=== PATIENT | male | born 1950 | race Caucasian/White ===

== ENCOUNTER → 2017-03-19 | Outpatient (CLI) | payer OTHER ==
[~2017-03-19] MED LIST: CYCL1TAB29 PO; GABA100C4 PO; HYDR-3366 PO; LEVO500T8 PO; SIMVPOW; TAMS5CAP PO; WALKER WHEELS/F1 MIS; ZOCO40TA PO
== END ==
LOC: CPRE 12:47
PROVIDERS: ATTEND Neurological Surgery
DX: M48.06 Spinal stenosis, lumbar region (principal); M51.36 Other intervertebral disc degeneration, lumbar region

== ENCOUNTER 2017-03-27 05:52 | Inpatient (IN) | payer OTHER, MEDICARE ==
--- NOTE | 2017-03-26 14:00 | MH ---
cc: CARLOS TSANG M.D., PRADY M. MD MALIK, VINOD K. MD DATE OF ADMISSION: 03/27/2017 ADMISSION DIAGNOSIS Lumbar degenerative disk disease. HISTORY OF PRESENT ILLNESS This is a 67-year-old male who presented to our office for evaluation of left hip area pain that radiates into the left lateral thigh and anterior dobbins to the top of the foot for the last year. He states he has been to physical therapy which exacerbated his pain. He states the pain and weakness is worse in the left leg. He has tried physical therapy 4 or 5 weeks. He has numbness and paresthesias in the same area as the pain. He denies any falls but his legs feel weak. Sitting is the worst position and bending forward. He has had hernia surgery on the right side which became infected on two occasions and he was discovered to be ALLERGIC TO VICRYL SUTURES. PAST MEDICAL HISTORY Significant for: 1. Knee surgery in 2002. 2. Hernia surgery in May of 2016. 3. Cervical spine surgery in 1990, 1992, 2010. 4. History of COPD. 5. History of hyperlipidemia. CURRENT MEDICATIONS He is taking Simvastatin 40 mg daily, Gabapentin 100 mg b.i.d. ALLERGIES He is allergic to VICRYL SUTURES. FAMILY HISTORY Father is , he is not sure of the cause. His mother is , bowel obstruction. SOCIAL HISTORY He is . He does not have children. He lives with his . He smokes a pack of cigarettes a day for 50 years. He drinks alcohol two drinks or more daily. REVIEW OF SYSTEMS CONSTITUTIONAL: Denies any fever or chills. ENT: No pharyngitis, exudates or bloody drainage from his nose. CARDIOVASCULAR: Denies any chest pain or palpitations. RESPIRATORY: Positive for shortness of breath. No cough. GENITOURINARY: No dysuria hematuria. MUSCULOSKELETAL: Positive for low back pain. SKIN: No rashes or pruritus. NEUROLOGIC: No difficulty with speech or memory. GASTROINTESTINAL: No nausea, vomiting, abdominal pain. PSYCHIATRIC: Positive for depression. No anxiety symptoms. ENDOCRINE: No polyuria, polydipsia. HEMATOLOGIC: No bruising or bleeding tendencies. PHYSICAL EXAMINATION HEAD: Normocephalic, atraumatic. NECK: Supple. No carotid bruits heard on auscultation. LUNGS: Clear to auscultation bilaterally. HEART: Regular rate and rhythm, normal S1, S2. ABDOMEN: Soft, nontender. Positive bowel sounds. He has a right inguinal scar that is healed without any drainage or erythema. SKIN: No cyanosis or erythema. MUSCULOSKELETAL: He has 3/5 EHL/dorsiflexion strength. Otherwise his strength is 5/5 in the lower extremities. NEUROLOGIC: He is awake, alert and oriented. Cranial nerves II-XII appear grossly intact. His speech is fluent. Comprehension is good. Sensation is diminished in the left lateral calf and top and bottom of the left foot, otherwise intact. DATA REVIEWED MRI of the lumbar spine from March 07, 2016 reveals a L4-L5 disk degeneration with disk height collapse and endplate changes along with disk protrusion and facet hypertrophy with overall moderate to severe spinal stenosis. He also has severe L5-S1 degenerative disk disease with disk height collapse with bilateral foraminal stenosis. IMPRESSION A 67-year-old male with progressively worsening low back pain and left L5 radiculopathy with weakness. Physical therapy aggravate his symptoms rather than helped him and he relates that sitting or driving is very difficult for him and aggravates his pain. The patient is requesting surgical intervention. He has severe disk degeneration with disk height collapse and endplate changes at L4-L5 and L5-S1 along with facet arthropathy and disk protrusion with spinal stenosis at the L4-5 level and foraminal stenosis at the L5-S1 level. PLAN We have discussed treatment options with the patient and we have recommended a L4/L5 and L5/S1 transforaminal decompression with interbody fusion and pedicle screw fixation, given that the patient cannot tolerate his current level discomfort and he has exhausted conservative treatment measures. No guarantees were given to the patient. We have discussed the risks involved with surgery to include but not limited to bleeding, infection, muscle weakness, voice hoarseness, difficulty swallowing, heart attack, stroke, blood clots, non-fusion, scar tissue formation, among others. We have also discussed alternatives of surgery and the risks and benefits involved with those. All of his questions were answered to his satisfaction. He is requesting that we proceed and he was therefore scheduled accordingly. Dictated by: Edi Blunt PA-C MD LILIA Ramos/ELOISE /1:28 PM /1:39 PM
[~2017-03-27] VITALS: Ht 182.9 cm; Wt 79.6 kg
[~2017-03-27 05:52] MED LIST changes: -LEVO500T8 PO; -SIMVPOW; -TAMS5CAP PO; -WALKER WHEELS/F1 MIS
[2017-03-27] MEDS ORDERED: INSULIN HUMAN REGULAR 1,000 UNITS/10 ML VIAL SQ PRN (06:30)
[2017-03-27] MEDS ORDERED: LACTATED RINGER'S 1000 ML IV PRN (06:30)
[2017-03-27] MEDS ORDERED: CHLORHEXIDINE GLUCONATE 2 % 1 PACK (2 CLOTHS) TOPICAL PRN (06:30)
[2017-03-27] MEDS ORDERED: VANCOMYCIN HCL 1000 MG ON-CALL/NS 250 ML IV SCH ×2 (06:30)
[2017-03-27] MEDS ORDERED: SODIUM CHLOR 0.9% 1000 ML INJ 1,000 ML IV SCH (06:30)
[2017-03-27] MEDS ORDERED: SODIUM CHLORID 0.9% 500 ML IV PRN (06:30)
[2017-03-27] MEDS ORDERED: METOPROLOL TARTRATE 25 MG TAB PO PRN (06:30)
[2017-03-27] MEDS ORDERED: POVIDONE IODINE 5% (ANTISEPSIS KIT) 4 APPLICATIONS EACH NARE PRN (06:30)
[2017-03-27] MEDS ORDERED: PROPOFOL 500 MG/50 ML INJ 50 ML ONE (06:48)
[2017-03-27] MEDS ORDERED: ACETAMINOPHEN 1000 MG/100 ML 100 ML IV ONE (06:48)
[2017-03-27] MEDS ORDERED: KETAMINE HCL 500 MG/5 ML VIAL ONE (06:48)
[2017-03-27] MEDS ORDERED: THROMBIN (TOPICAL) 5,000 UNIT VIAL ONE ×3 (07:01→13:30)
[2017-03-27] MEDS ORDERED: VANCOMYCIN HCL 1000 MG VIAL ONE ×2 (07:01)
[2017-03-27] MEDS ORDERED: GELFOAM SIZE 100 ONE ×2 (07:01→13:30)
[2017-03-27] MEDS ORDERED: BUPIVACAINE/EPINEPHRINE 0.5% 50 ML VIAL ONE (07:01)
[2017-03-27] MEDS ORDERED: HYDROmorphone HCL PF 2 MG/ML VIAL ONE (08:15)
[2017-03-27] MEDS ORDERED: ePHEDrine/NS 25 MG/5 ML SYR IV ONE ×2 (12:00)
[2017-03-27] MEDS ORDERED: SODIUM CHLORID 0.9% 500 ML INJ 500 ML IV ONE (12:00)
[2017-03-27] MEDS ORDERED: LACTATED RINGER'S 1000 ML INJ 2,000 ML IV ONE (12:00)
[2017-03-27] MEDS ORDERED: DEXAMETHASONE SOD PHOS 4 MG/ML VIAL IV ONE (12:00)
[2017-03-27] MEDS ORDERED: PROPOFOL 200 MG/20 ML AMP IV ONE (12:00)
[2017-03-27] MEDS ORDERED: PHENYLEPHRINE HCL 10 MG/ML VIAL IV ONE (12:00)
[2017-03-27] MEDS ORDERED: PHENYLEPH/NS 1000 MCG/10 ML SYR IV ONE (12:00)
[2017-03-27] MEDS ORDERED: NEOSTIGMINE 3 MG/3 ML SYR IV ONE (12:00)
[2017-03-27] MEDS ORDERED: ROCURONIUM INJ 50 MG/5 ML SYRINGE IV PUSH ONE ×2 (12:00→12:17)
[2017-03-27] MEDS ORDERED: LIDOCAINE HCL 1% PF 5 ML AMPULE OTHER ONE (12:00)
[2017-03-27] MEDS ORDERED: GLYCOPYRROLATE 1 MG/5 ML SYRINGE IV PUSH ONE (12:00)
[2017-03-27] MEDS ORDERED: MIDAZOLAM HCL 2 MG/2 ML VIAL IV ONE (12:00)
[2017-03-27] MEDS ORDERED: ONDANSETRON HCL 4 MG/2 ML VIAL IV PUSH ONE (12:00)
[2017-03-27] MEDS ORDERED: DO NOT ADM ANY ANTICOAGULANT DRUGS PRN (14:05)
--- NOTE | 2017-03-27 14:22 | PD.OP ---
MD Anderson Hdez MD Operative Report Date of Surgery: Mar 27, 2017 Preoperative Diagnosis: Severe L4-5 and L5-S1 degenerative disc disease with facet arthropathy and foraminal stenosis; L4-5 disc protrusion with spinal and foraminal stenosis; intractable low back pain with radiculopathy Postoperative Diagnosis: Same Procedure: L4-5 and L5-S1 transforaminal interbody fusion; L4, L5 and S1 decompressive laminectomies; L4-S1 pedicle screw fixation; L4-5 and L5-S1 interbody cage placement; microsurgical technique Anesthesia: Gen. endotracheal by Khadar Clarke Surgeon: Arvind Spaulding M.D. Particle Board Supervisor(s): Tiffani Schuler Operation and Findings: Following initiation of general endotracheal anesthesia, the patient had a Kaufman catheter placed along with sequential compression devices. A gram of vancomycin was administered intravenously and he was turned in a prone position on a Eduardo frame, on a Clifford table, and all pressure points adequately padded. The lumbosacral region was then prepped with Chloraprep and sterilely draped with Ioban along the usual sterile draping. A midline skin incision was then made extending from the L4-S1 levels after infiltrating the skin with 0.5% Marcaine with epinephrine solution extending down through the fascia. Using the subperiosteal plane the muscle attachments a left-sided spinous process lamina facet that were detached at the L4-5 and L5-S1 levels. There is significant facet hypertrophy noted. Intraoperative fluoroscopy was also used for level of confirmation along with microscope magnification for further dissection. L4-5 facet and L5-S1 facet was resected with a drill bit along with the lamina and there was severe foraminal and lateral recess stenosis from hypertrophied ligamentum flavum and facet which were decompressed bilaterally through the unilateral approach. There was significant disc height collapse along with disc protrusion also leading to the foraminal stenosis at both levels. There was also central disc protrusion at the L4-5 level. Epidural hemostasis was achieved with bipolar cautery and Gelfoam with thrombin. Subsequently entered into the disc space at the L4-5 as well as L5-S1 levels with a #15 blade and dayo were used for discectomy. I then placed PEEK cages packed with local autograft bone and more local autograft bone was packed adjacent to the cage in both interspaces for added interbody fusion. With placement of the cages, I was able to distract the interspaces and opened up the foramen further bilaterally. Subsequently in order to facilitate the fusion and provide stabilization, pedicle screw fixation was undertaken using Callaway spine screws on entry point at the left L4-5 levels at the junction of the transverse process and facet and the left S1 sacral ala. Subsequently using AP and lateral fluoroscopy tap and screw placement. The screws were then connected with a jesusita and locked in place with caps. The construct appeared very secure at this point. The area was then copiously irrigated with Vancomycin solution and powder. The retractors were removed and the bipolar cautery used for hemostasis. The muscle fascia was then approximated using 1-0 PDS interrupted stitches and then 3-0 PDS subcuticular stitches also placed in interrupted fashion. The final skin closure was completed with Mastisol and Steri-Strips. A sterile dressing was then applied. The patient then turned in supine position, extubated and taken to recovery room. There were no intraoperative complications. All sponge and needle counts were correct at the end of procedure. Estimated blood loss about 250 ml. Arvind Spaulding MD Mar 27, 2017 14:22
[2017-03-27] MEDS ORDERED: RESP: ALBUTEROL 2.5 MG/3 ML NEB (PRN) NEB (14:30)
[2017-03-27] MEDS ORDERED: NALOXONE HCL 0.4 MG/ML AMP IV PUSH PRN (14:30)
[2017-03-27] MEDS ORDERED: ACETAMINOPHEN 325 MG TAB PO PRN (14:30)
[2017-03-27] MEDS ORDERED: CALCIUM GLUCONATE INJ 1 GM in SODIUM CHLORIDE 0.9% INJ 100 ML IV PRN (14:30)
[2017-03-27] MEDS ORDERED: PROMETHAZINE INJ 25 MG/ML VIAL IM PRN (14:30)
[2017-03-27] MEDS ORDERED: diphenhydrAMINE HCL 50 MG/ML VIAL IV PUSH PRN (14:30)
[2017-03-27] MEDS ORDERED: MAGNESIUM SULFATE INJ 2 GM in SODIUM CHLORIDE 0.9% INJ 100 ML IV PRN (14:30)
[2017-03-27] MEDS ORDERED: ONDANSETRON HCL 4 MG/2 ML VIAL IV PUSH PRN (14:30)
[2017-03-27] MEDS ORDERED: cloNIDine HCL 0.1 MG TAB PO PRN (14:30)
[2017-03-27] MEDS ORDERED: SODIUM CHLORIDE 0.9% FLUSH 10 ML FLUSH IV FLUSH PRN (14:30)
[2017-03-27] MEDS ORDERED: ALUMINUM/MAGNESIUM/SIMETH 30 ML CUP PO PRN (14:30)
[2017-03-27] MEDS ORDERED: MENTHOL LOZENGE BUCCAL PRN (14:30)
[2017-03-27] MEDS ORDERED: POTASSIUM CHLOR 20 MEQ PREMIX 100 ML IV PRN (14:30)
[2017-03-27] MEDS ORDERED: MAGNESIUM HYDROXIDE SUSP 30 ML CUP PO PRN (14:30)
[2017-03-27] MEDS: PCA - TOTAL MG MORPHINE DELIVERED PER SHIFT SCH ×2 (14:30→22:00)
[2017-03-27] MEDS: NS + KCL 20 MEQ INJ 1,000 ML IV SCH (14:38)
[2017-03-27] MEDS: MORPHINE SULFATE 30 MG/30 ML PCA IV SCH (14:38)
--- NOTE | 2017-03-27 15:37 | RADRPT ---
EXAM DATE/TIME: 03/27/2017 08:55 [facility] COMPARISON: FLUOROSCOPY PORTABLE UP TO 1HR, March 27, 2017, 0:00. INDICATIONS : Post-op L4-L5, L5-S1 posterior lumbar fusion. MEDICAL HISTORY : None. SURGICAL HISTORY : None. ENCOUNTER: Initial ACUITY: 1 day PAIN SCORE: Non-responsive. LOCATION: Lumbar spine. FINDINGS: The examination demonstrates transpedicular screws on the left side at L4, L5 and S1 consistent with fusion across these levels. The cage material is well-positioned. CONCLUSION: 1. Uncomplicated unilateral lumbar fusion as above. Rigoberto Delgadillo MD on March 27, 2017 at 14:20 Board Certified Radiologist. This report was verified electronically.
--- NOTE | 2017-03-27 15:38 | RADRPT ---
EXAM DATE/TIME: 03/27/2017 08:55 [facility] COMPARISON: FLUOROSCOPY PORTABLE UP TO 1HR, March 27, 2017, 0:00. INDICATIONS : L4-L5, L5-S1 posterior lumbar fusion. Level localization. MEDICAL HISTORY : None. SURGICAL HISTORY : None. ENCOUNTER: Initial ACUITY: 1 day PAIN SCORE: Non-responsive. LOCATION: Lumbar spine. FINDINGS: Lateral film for localization demonstrates localization hardware projecting at L4 and L5. CONCLUSION: 1. Localization as above. Rigoberto Delgadillo MD on March 27, 2017 at 15:36 Board Certified Radiologist. This report was verified electronically.
[2017-03-27 16:02] LABS: BASOPHIL % 0.1 % (0.0-2.0); EOSINOPHIL % 0.1 % (0.0-4.0); HEMATOCRIT 40.1 % (39.0-51.0); HEMO FLAGS DIFF FINAL; LYMPH % 5.3 % (9.0-44.0); LYMPHOCYTE # 0.7 TH/MM3 (1.0-4.8); MEAN CELL VOLUME 95.2 FL (80.0-100.0); MEAN CORPUSCULAR HEMOGLOBIN 31.4 PG (27.0-34.0); MONO % 1.4 % (0.0-8.0); NEUT % 93.1 % (16.0-70.0); PLATELET COUNT 171 TH/MM3 (150-450); RED BLOOD COUNT 4.21 MIL/MM3 (4.50-5.90); RED CELL DISTRIBUTION WIDTH 13.9 % (11.6-17.2)
[2017-03-27 16:10] LABS: POTASSIUM 4.1 MEQ/L (3.5-5.1)
[2017-03-27] MEDS: ACETAMINOPHEN/HYDROcodone 325 MG/10 MG TAB PO PRN ×2 (17:03→21:27)
[2017-03-27 17:30] VITALS: BP 121/66; PULSE 76; RESP 18; TEMP 98.2; O2SAT 96
[2017-03-27] MEDS: CYCLOBENZAPRINE HCL 10 MG TAB PO SCH (17:52)
[2017-03-27 19:43] VITALS: O2SAT 96
[2017-03-27 20:30] VITALS: BP 99/58; PULSE 82; RESP 16; TEMP 98.1; O2SAT 96
[2017-03-27] MEDS: SODIUM CHLORIDE 0.9% FLUSH 10 ML FLUSH IV FLUSH SCH (21:00)
[2017-03-27] MEDS: DOCUSATE SODIUM 100 MG CAP PO SCH (21:00)
[2017-03-27] MEDS: ZOLPIDEM TARTRATE 5 MG TAB PO PRN (21:26)
[2017-03-27] MEDS: GABAPENTIN 100 MG CAP PO SCH (21:26)
[2017-03-28] VITALS (8 sets, daily range): BP systolic 99–144; BP diastolic 57–72; PULSE 63–113; RESP 16–20; TEMP 97.1–98.7; O2SAT 94–96
[2017-03-28] MEDS: NS + KCL 20 MEQ INJ 1,000 ML IV SCH ×2 (01:44→14:41)
[2017-03-28] MEDS: SODIUM CHLORIDE 0.9% FLUSH 10 ML FLUSH IV FLUSH SCH ×2 (09:00→21:00)
[2017-03-28] MEDS: LACTULOSE SYRUP 20 GM/30 ML CUP PO SCH (09:00)
[2017-03-28] MEDS: PANTOPRAZOLE SOD 40 MG DELAYED RELEASE TAB PO SCH (09:32)
[2017-03-28] MEDS: GABAPENTIN 100 MG CAP PO SCH ×2 (09:32→21:10)
[2017-03-28] MEDS: CYCLOBENZAPRINE HCL 10 MG TAB PO SCH ×3 (09:32→18:36)
[2017-03-28] MEDS: PRAVASTATIN SOD 80 MG TAB PO SCH (09:32)
[2017-03-28] MEDS: DOCUSATE SODIUM 100 MG CAP PO SCH ×2 (09:32→21:10)
--- NOTE | 2017-03-28 09:33 | HHI.NSPN ---
(Edi Blunt) History Chief Complaint: Incisional discomfort. (Edi Blunt) Interval History 03/28/17: Pt states he is doing very well. Incisional discomfort. No radiculopathy in the LEs. No paresthesias in LEs. He ambulated with PT. He is very pleased with results so far. (Edi Blunt) Review of Systems General: Negative for: fever, chills, insomnia Respiratory: Negative for: shortness of breath, cough, sputum Cardiovascular: Negative for: chest pain Gastrointestinal: Negative for: nausea, vomitting, diarrhea, constipation ( Edi Blunt) Exam Results Vital Signs Date Time Temp Pulse Resp B/P (MAP) Pulse Ox O2 Delivery O2 Flow Rate FiO2 03/28/17 08:03 97.1 63 20 119/72 (88) 96 03/27/17 19:43 21 03/27/17 16:45 Nasal Cannula 2 Intake and Output 03/28/17 03/28/17 03/29/17 08:00 16:00 00:00 Output Total 1400 ml Balance -1400 ml (Edi Blunt) Physical Examination Resp: CTA bilaterally Heart: NSR no murmurs Abd: Soft positive bs Skin: Incision clean and dry. No signs of infection. New bandage placed. Muscle: Moves all 4 extremities well. He ambulates with a walker. Neuro: Pt awake and alert. Follows commands well. Speech clear and appropriate. No numbness in LEs. (Edi Blunt) Lab, Micro, Other Results Last Impressions Lumbar Spine X-Ray 03/27/17 0000 Signed Impressions: Service Date/Time: February 08:55 - CONCLUSION: 1. Uncomplicated unilateral lumbar fusion as above. Rigoberto Delgadillo MD Laboratory Tests Test 03/27/17 14:53 White Blood Count 14.0 TH/MM3 Red Blood Count 4.21 MIL/MM3 Hemoglobin 13.2 GM/DL Hematocrit 40.1 % Mean Corpuscular Volume 95.2 FL Mean Corpuscular Hemoglobin 31.4 PG Mean Corpuscular Hemoglobin Concent 33.0 % Red Cell Distribution Width 13.9 % Platelet Count 171 TH/MM3 Mean Platelet Volume 7.5 FL Neutrophils (%) (Auto) 93.1 % Lymphocytes (%) (Auto) 5.3 % Monocytes (%) (Auto) 1.4 % Eosinophils (%) (Auto) 0.1 % Basophils (%) (Auto) 0.1 % Neutrophils # (Auto) 13.0 TH/MM3 Lymphocytes # (Auto) 0.7 TH/MM3 Monocytes # (Auto) 0.2 TH/MM3 Eosinophils # (Auto) 0.0 TH/MM3 Basophils # (Auto) 0.0 TH/MM3 CBC Comment DIFF FINAL Differential Comment Blood Urea Nitrogen 13 MG/DL Creatinine 0.73 MG/DL Random Glucose 114 MG/DL Calcium Level 8.5 MG/DL Sodium Level 140 MEQ/L Potassium Level 4.1 MEQ/L Chloride Level 110 MEQ/L Carbon Dioxide Level 26.0 MEQ/L Anion Gap 4 MEQ/L Estimat Glomerular Filtration Rate 107 ML/MIN (Edi Blunt) Medical Decision Making Impression and Plan A: 67 y/o M s/p L4/L5 and L5/S1 TLIF with cage and pedicle screw fixation. P: Continue to monitor Continue with current care. D/C CERAMIC WORKER tomorrow am (Edi Blunt) Attending Statement The exam, history, and the medical decision-making described in the above note were completed with the assistance of the mid-level provider. I reviewed and agree with the findings presented. I attest that I had a [id number] encounter with the patient on the same day, and personally performed and documented my assessment and findings in the medical record. Incisional pain control with the CERAMIC WORKER. Resolved lower extremity radicular symptoms. Ambulating and voiding with a slight hematuria after the Kaufman catheter was pulled. We'll DC CERAMIC WORKER tomorrow and if doing well then discharge over the next couple days. (Arvind Spaulding MD) Edi Blunt Mar 28, 2017 09:33 Arvind Spaulding MD Mar 28, 2017 18:28
[2017-03-28] MEDS ORDERED: WALKER WHEELS/F1 MIS (09:35)
[2017-03-28] MEDS: ACETAMINOPHEN/HYDROcodone 325 MG/10 MG TAB PO PRN ×2 (09:44→21:11)
[2017-03-28] MEDS: PCA - TOTAL MG MORPHINE DELIVERED PER SHIFT SCH ×2 (14:00→21:51)
[2017-03-28] MEDS: NICOTINE 21 MG/24 HR PATCH T-DERMAL SCH (15:17)
[2017-03-28] MEDS: ZOLPIDEM TARTRATE 5 MG TAB PO PRN (21:10)
[2017-03-29 04:00] VITALS: BP 121/64; PULSE 92; RESP 18; TEMP 98.1; O2SAT 90
[2017-03-29] MEDS: PCA - TOTAL MG MORPHINE DELIVERED PER SHIFT SCH ×3 (06:00→20:50)
[2017-03-29] MEDS: MORPHINE SULFATE 30 MG/30 ML PCA IV SCH (06:17)
[2017-03-29 08:15] VITALS: BP 104/58; PULSE 86; RESP 18; TEMP 98.2; O2SAT 93
[2017-03-29] MEDS: GABAPENTIN 100 MG CAP PO SCH ×2 (09:22→20:50)
[2017-03-29] MEDS: LACTULOSE SYRUP 20 GM/30 ML CUP PO SCH (09:22)
[2017-03-29] MEDS: DOCUSATE SODIUM 100 MG CAP PO SCH ×2 (09:22→20:50)
[2017-03-29] MEDS: REMOVE OLD PATCH T-DERMAL SCH (09:23)
[2017-03-29] MEDS: CYCLOBENZAPRINE HCL 10 MG TAB PO SCH ×3 (09:23→16:53)
[2017-03-29] MEDS: PRAVASTATIN SOD 80 MG TAB PO SCH (09:23)
[2017-03-29] MEDS: PANTOPRAZOLE SOD 40 MG DELAYED RELEASE TAB PO SCH (09:23)
[2017-03-29] MEDS: NICOTINE 21 MG/24 HR PATCH T-DERMAL SCH (09:23)
[2017-03-29] MEDS: SODIUM CHLORIDE 0.9% FLUSH 10 ML FLUSH IV FLUSH SCH ×2 (09:24→20:50)
[2017-03-29] MEDS: ACETAMINOPHEN/HYDROcodone 325 MG/10 MG TAB PO PRN ×3 (10:18→20:50)
[2017-03-29 11:57] VITALS: O2SAT 93
[2017-03-29 12:00] VITALS: BP 111/68; PULSE 95; RESP 20; TEMP 100; O2SAT 94
--- NOTE | 2017-03-29 12:57 | PD.CONS ---
HPI Service Urology Consult Requested By Dr. Christian Reason for Consult Gross hematuria Primary Care Physician Chilo Herzog MD Diagnosis: History of Present Illness 67 year-old gentleman who was admitted with left hip pain and underwent low back surgery on March 27 of this year. The patient did have an indwelling Kaufman catheter placed during the perioperative period and upon removal the patient developed gross painless hematuria. A urology consult was placed to address this finding. At the time of consultation the patient reported that the hematuria had resolved. He was complaining however of voiding frequently with only small amounts of urine being produced. He denies having problems with urination in the past. He denies a history of BPH. Review of Systems Constitutional: COMPLAINS OF: Fever (low-grade) Cardiovascular: DENIES: Chest pain Gastrointestinal: DENIES: Abdominal pain Genitourinary: COMPLAINS OF: Urinary frequency, Hematuria (now resolved) Except as stated in HPI: all other systems reviewed are Neg Past Family Social History Past Medical History COPD Hyperlipidemia Past Surgical History Recent low back surgery Status post knee surgery 2002 Status post herniorrhaphy 2016 Status post multiple surgical procedures to the cervical spine Reported Medications Refer to EMR Allergies: Uncoded Allergies: vicryl sutures (Allergy, Severe, 03/05/17) Active Ordered Medications Refer to EMR Family History Reviewed and noncontributory Social History Smoker one pack per day 50 years Moderate alcohol use Denies history intravenous drug abuse Physical Exam Vital Signs Date Time Temp Pulse Resp B/P (MAP) Pulse Ox O2 Delivery O2 Flow Rate FiO2 03/29/17 12:00 100.0 95 20 111/68 (82) 94 03/29/17 08:15 98.2 86 18 104/58 (73) 93 03/29/17 06:17 20 03/29/17 04:00 98.1 92 18 121/64 (83) 90 03/28/17 21:51 18 03/28/17 20:00 97.3 113 20 144/72 (96) 94 03/28/17 16:10 98.0 91 20 121/65 (83) 96 03/28/17 14:00 14 Physical Exam GENERAL: This is a well-nourished, well-developed patient, in no apparent distress. SKIN: No rashes, ecchymoses or lesions. Cool and dry. HEAD: Atraumatic. Normocephalic. No temporal or scalp tenderness. EYES: Pupils equal round and reactive. Extraocular motions intact. No scleral icterus. No injection or drainage. ENT: Nose without bleeding, purulent drainage or septal hematoma. Throat without erythema, tonsillar hypertrophy or exudate. Uvula midline. Airway patent. NECK: Trachea midline. No JVD or lymphadenopathy. Supple, nontender, no meningeal signs. GASTROINTESTINAL: Upper Abdomen soft, non-tender, nondistended. No hepato- splenomegaly, or palpable masses. No guarding. GENITOURINARY: Bladder distended. MUSCULOSKELETAL: Extremities without clubbing, cyanosis, or edema. No joint tenderness, effusion, or edema noted. No calf tenderness. Negative Homans sign bilaterally. NEUROLOGICAL: Awake and alert. Cranial nerves II through XII intact. Motor and sensory grossly within normal limits. Normal speech. Lab results reviewed: Yes Result Diagram: 03/27/17 1453 03/27/17 1453 Imaging Last Impressions Lumbar Spine X-Ray 03/27/17 0000 Signed Impressions: Service Date/Time: February 08:55 - CONCLUSION: 1. Uncomplicated unilateral lumbar fusion as above. Rigoberto Delgadillo MD Assessment and Plan Assessment and Plan Urologic impression: #1 recent development of gross hematuria likely related to trauma from recent Kaufman catheter which is now resolved. #2 postoperative urinary retention Recommendations: #1 discussed replacing Kaufman catheter at this time however patient is presently refusing this option as he is able to spontaneously void albeit small amounts at a time. #2 outpatient follow up for reevaluation [phone] Benitez Lopez MD Mar 29, 2017 12:57
--- NOTE | 2017-03-29 13:50 | HHI.NSPN ---
History Chief Complaint: Incisional discomfort. Interval History 03/28/17: Pt states he is doing very well. Incisional discomfort. No radiculopathy in the LEs. No paresthesias in LEs. He ambulated with PT. He is very pleased with results so far. 03/29/17: Pt doing well. No complaints of pain. Exam Results Vital Signs Date Time Temp Pulse Resp B/P (MAP) Pulse Ox O2 Delivery O2 Flow Rate FiO2 03/29/17 12:00 100.0 95 20 111/68 (82) 94 03/27/17 19:43 21 03/27/17 16:45 Nasal Cannula 2 Physical Examination Resp: CTA bilaterally Heart: NSR no murmurs Abd: Soft positive bs Skin: Incision clean and dry. No signs of infection. New bandage placed. Muscle: Moves all 4 extremities well. He ambulates with a walker. Neuro: Pt awake and alert. Follows commands well. Speech clear and appropriate. No numbness in LEs. Lab, Micro, Other Results Last Impressions Lumbar Spine X-Ray 03/27/17 0000 Signed Impressions: Service Date/Time: February 08:55 - CONCLUSION: 1. Uncomplicated unilateral lumbar fusion as above. Rigoberto Delgadillo MD Current Medications Medications (Trade) Dose Ordered Sig/Tori Route PRN Reason Start Time Stop Time Status Last Admin Dose Admin Lactated Ringer's 1,000 ml @ 30 mls/hr Q24H PRN IV SEE LABEL COMMENTS 03/27/17 06:30 03/30/17 06:29 03/27/17 07:05 Sodium Chloride 500 ml @ 30 mls/hr [id number] PRN IV SEE LABEL COMMENTS 03/27/17 06:30 03/30/17 06:29 Metoprolol Tartrate (Lopressor) 25 mg [employer] PRN PO SEE LABEL COMMENTS 03/27/17 06:30 03/30/17 06:29 Povidone Iodine (Betadine 5% Antisepsis Kit) 1 applic [employer] PRN EACH NARE SEE LABEL COMMENTS 03/27/17 06:30 03/30/17 06:29 03/27/17 07:05 Chlorhexidine Gluconate (Chlorhexidine 2% Cloth) 3 pack [employer] PRN TOPICAL SEE LABEL COMMENTS 03/27/17 06:30 03/30/17 06:29 03/27/17 06:45 Insulin Human Regular (NovoLIN R INJ) See Protocol Table ... [employer] PRN SQ SEE PROTOCOL TABLE 03/27/17 06:30 03/30/17 06:29 Vancomycin HCl 1000 mg/Sodium Chloride 250 ml @ 250 mls/hr [employer] IV 03/27/17 06:30 03/30/17 06:29 03/27/17 07:19 Cyclobenzaprine HCl (Flexeril) 10 mg TID PO 03/27/17 18:00 03/29/17 12:45 Gabapentin (Neurontin) 100 mg BID PO 03/27/17 21:00 03/29/17 09:22 Pravastatin Sodium (Pravachol) 80 mg DAILY PO 03/28/17 09:00 03/29/17 09:23 Potassium Chloride/Sodium Chloride 1,000 ml @ 30 mls/hr Q24H IV 03/27/17 14:18 03/28/17 14:41 Sodium Chloride (NS Flush) 2 ml UNSCH PRN IV FLUSH FLUSH AFTER USING IV ACCESS 03/27/17 14:30 Sodium Chloride (NS Flush) 2 ml BID IV FLUSH 03/27/17 21:00 03/29/17 09:24 Docusate Sodium (Colace) 100 mg BID PO 03/27/17 21:00 03/29/17 09:22 Magnesium Hydroxide (Milk Of Magnesia Liq) 30 ml DAILY PRN PO CONSTIPATION 03/27/17 14:30 Al Hydrox/Mg Hydrox/Simethicone (Mag-Al Plus Susp Liq) 30 ml Q6H PRN PO DYSPEPSIA 03/27/17 14:30 Pantoprazole Sodium (Protonix) 40 mg DAILY PO 03/28/17 09:00 03/29/17 09:23 Ondansetron HCl (Zofran Inj) 4 mg Q6H PRN IV PUSH NAUSEA OR VOMITING 03/27/17 14:30 Promethazine HCl (Phenergan Inj) 25 mg Q4H PRN IM NAUSEA OR VOMITING 03/27/17 14:30 Calcium Gluconate 1 gm/Sodium Chloride 110 ml @ 110 mls/hr UNSCH PRN IV SEE LABEL COMMENTS 03/27/17 14:30 Potassium Chloride 100 ml @ 50 mls/hr UNSCH PRN IV POTASSIUM LESS THAN 4 03/27/17 14:30 Magnesium Sulfate 2 gm/Sodium Chloride 104 ml @ 100 mls/hr UNSCH PRN IV MAGNESIUM LESS THAN 2 03/27/17 14:30 Acetaminophen/ Hydrocodone Bitart (Points 10-325 Mg) 1 tab Q4H PRN PO PAIN SCALE 1 TO 5 03/27/17 14:30 03/28/17 09:44 Acetaminophen/ Hydrocodone Bitart (Points 10-325 Mg) 2 tab Q4H PRN PO PAIN SCALE 6 TO 10 03/27/17 14:30 03/29/17 10:18 Clonidine (Catapres) 0.1 mg Q6H PRN PO SYS BP GREATER THAN 170 MMHG 03/27/17 14:30 Acetaminophen (Tylenol) 650 mg Q4H PRN PO TEMPERATURE > 101.5 F 03/27/17 14:30 Menthol ([place]) 1 lozenge UNSCH PRN BUCCAL SORE THROAT 03/27/17 14:30 Zolpidem Tartrate (Ambien) 5 mg HS PRN PO INSOMNIA 03/27/17 21:00 03/28/17 21:10 Albuterol Sulfate (Albuterol Neb) 2.5 mg Q4HR NEB PRN NEB WHEEZING 03/27/17 14:30 03/29/17 01:47 Naloxone HCl (Narcan Inj) 0.4 mg UNSCH PRN IV PUSH RESPIRATORY RATE LESS THAN 10 03/27/17 14:30 Diphenhydramine HCl (Benadryl Inj) 25 mg Q6H PRN IV PUSH ITCHING 03/27/17 14:30 Morphine Sulfate (Morphine 1 Mg/ ml PASTRY SUPERVISOR) 30 mg UNSCH IV 03/27/17 14:30 03/29/17 06:17 PASTRY SUPERVISOR Dosage Infused (Pha) 1 Q8HR .XX 03/27/17 14:30 03/28/17 21:51 Lactulose (Lactulose Liq) 30 ml DAILY PO 03/28/17 09:00 03/29/17 09:22 Nicotine (Habitrol 21 Mg Patch.24 Hr) 1 patch DAILY T-DERMAL 03/28/17 09:45 03/29/17 09:23 Miscellaneous Information 1 DAILY T-DERMAL 03/29/17 09:00 03/29/17 09:23 Laboratory Tests Test 03/27/17 14:53 White Blood Count 14.0 TH/MM3 Red Blood Count 4.21 MIL/MM3 Hemoglobin 13.2 GM/DL Hematocrit 40.1 % Mean Corpuscular Volume 95.2 FL Mean Corpuscular Hemoglobin 31.4 PG Mean Corpuscular Hemoglobin Concent 33.0 % Red Cell Distribution Width 13.9 % Platelet Count 171 TH/MM3 Mean Platelet Volume 7.5 FL Neutrophils (%) (Auto) 93.1 % Lymphocytes (%) (Auto) 5.3 % Monocytes (%) (Auto) 1.4 % Eosinophils (%) (Auto) 0.1 % Basophils (%) (Auto) 0.1 % Neutrophils # (Auto) 13.0 TH/MM3 Lymphocytes # (Auto) 0.7 TH/MM3 Monocytes # (Auto) 0.2 TH/MM3 Eosinophils # (Auto) 0.0 TH/MM3 Basophils # (Auto) 0.0 TH/MM3 CBC Comment DIFF FINAL Differential Comment Blood Urea Nitrogen 13 MG/DL Creatinine 0.73 MG/DL Random Glucose 114 MG/DL Calcium Level 8.5 MG/DL Sodium Level 140 MEQ/L Potassium Level 4.1 MEQ/L Chloride Level 110 MEQ/L Carbon Dioxide Level 26.0 MEQ/L Anion Gap 4 MEQ/L Estimat Glomerular Filtration Rate 107 ML/MIN Medical Decision Making Impression and Plan Urology consulted for blood with urination after Kaufman removed. Will stop PASTRY SUPERVISOR today. D/C home in am 03/30 Warren Christian MD Mar 29, 2017 13:50
[2017-03-29 15:37] VITALS: BP 150/73; PULSE 97; RESP 20; TEMP 98.4; O2SAT 93
[2017-03-29] MEDS: NS + KCL 20 MEQ INJ 1,000 ML IV SCH (16:53)
[2017-03-29 20:39] VITALS: BP 130/73; PULSE 88; RESP 20; TEMP 98.2; O2SAT 93
[2017-03-30] MEDS: ACETAMINOPHEN/HYDROcodone 325 MG/10 MG TAB PO PRN ×3 (01:00→11:19)
[2017-03-30 01:01] VITALS: BP 140/77; PULSE 90; RESP 20; TEMP 97.9; O2SAT 93
[2017-03-30] MEDS: PCA - TOTAL MG MORPHINE DELIVERED PER SHIFT SCH (03:32)
[2017-03-30 04:56] VITALS: BP 124/68; PULSE 86; RESP 20; TEMP 98; O2SAT 95
[2017-03-30 08:17] VITALS: BP 119/69; PULSE 80; RESP 17; TEMP 98.1; O2SAT 90
[2017-03-30] MEDS: CYCLOBENZAPRINE HCL 10 MG TAB PO SCH (08:32)
[2017-03-30] MEDS: DOCUSATE SODIUM 100 MG CAP PO SCH (08:32)
[2017-03-30] MEDS: GABAPENTIN 100 MG CAP PO SCH (08:32)
[2017-03-30] MEDS: REMOVE OLD PATCH T-DERMAL SCH (08:33)
[2017-03-30] MEDS: LACTULOSE SYRUP 20 GM/30 ML CUP PO SCH (08:33)
[2017-03-30] MEDS: NICOTINE 21 MG/24 HR PATCH T-DERMAL SCH (08:33)
[2017-03-30] MEDS: PANTOPRAZOLE SOD 40 MG DELAYED RELEASE TAB PO SCH (08:33)
[2017-03-30] MEDS: PRAVASTATIN SOD 80 MG TAB PO SCH (08:33)
[2017-03-30] MEDS: SODIUM CHLORIDE 0.9% FLUSH 10 ML FLUSH IV FLUSH SCH (08:34)
[2017-03-30 10:27] VITALS: O2SAT 95
--- NOTE | 2017-03-30 11:29 | HHI.DS ---
Discharge Summary Admission Date Mar 27, 2017 at 05:52 Discharge Date: Mar 30, 2017 Admitting Diagnosis Lumbar degenerative disk disease L4-5, L5-S1 (1) S/P lumbar fusion ICD Code: Z98.1 - Arthrodesis status (2) Lumbar disc prolapse with compression radiculopathy ICD Code: M51.16 - Intervertebral disc disorders with radiculopathy, lumbar region Status: Acute (3) Low back pain ICD Code: M54.5 - Low back pain Status: Acute (4) Facet arthropathy, lumbar ICD Code: M12.88 - Other specific arthropathies, not elsewhere classified, other specified site Status: Acute (5) Lumbar foraminal stenosis ICD Code: M99.83 - Other biomechanical lesions of lumbar region Status: Acute (6) Lumbar degenerative disc disease ICD Code: M51.36 - Other intervertebral disc degeneration, lumbar region Status: Acute Procedures TLIF at L4-5, L5-S1 Brief History This is a 67-year-old male who presented to our office for evaluation of left hip area pain that radiates into the left lateral thigh and anterior dobbins to the top of the foot for the last year. He states he has been to physical therapy which exacerbated his pain. He states the pain and weakness is worse in the left leg. He has tried physical therapy 4 or 5 weeks. He has numbness and paresthesias in the same area as the pain. He denies any falls but his legs feel weak. Sitting is the worst position and bending forward. He has had hernia surgery on the right side which became infected on two occasions and he was discovered to be ALLERGIC TO VICRYL SUTURES. CBC/BMP: 03/27/17 1453 03/27/17 1453 Significant Findings Laboratory Tests Test 03/27/17 14:53 White Blood Count 14.0 TH/MM3 (4.0-11.0) Red Blood Count 4.21 MIL/MM3 (4.50-5.90) Neutrophils (%) (Auto) 93.1 % (16.0-70.0) Lymphocytes (%) (Auto) 5.3 % (9.0-44.0) Neutrophils # (Auto) 13.0 TH/MM3 (1.8-7.7) Lymphocytes # (Auto) 0.7 TH/MM3 (1.0-4.8) Random Glucose 114 MG/DL (74-106) Chloride Level 110 MEQ/L (98-107) Anion Gap 4 MEQ/L (5-15) Hospital Course / Patient had a TLIF at L4-5, L5-S1 on 03/27/17. Patient tolerated the procedure well. Patient had a Kaufman removed on POD#2 with some mild blood discharge afterwards which Urology was consulted. 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 Patient was evaluated by PT. Patient had no major events. Pt Condition on Discharge: Good Discharge Disposition: Discharge Home Discharge Instructions DIET: Follow Instructions for: As Tolerated, No Restrictions Speech Therapy-Diet Recommenda: Regular ACTIVITIES You can perform: Partial Weight Bearing, Shower Only-No Bath Activities to Avoid: Lifting/Bending, Prolonged Standing, Strenuous Activity, Bathing, Driving ADDITIONAL Activity Instructio: Lumbar brace on when sitting, standing, or walking. Warren Christian MD Mar 30, 2017 11:29
[2017-03-31] MEDS ORDERED: TAMS5CAP PO (17:57)
== END 2017-03-30 12:43 | disposition home or self-care (01) | DRG 460 ==
LOC: HSDI 05:52 → N05A 17:02
PROVIDERS: ADMIT Neurological Surgery; ATTEND Neurological Surgery
PROC: 0SG30AJ Fusion of Lumbosacral Joint with Interbody Fusion Device, Posterior Approach, Anterior Column, Open Approach (ICD-10-PCS; 2017-03-27)
PROC: 0ST20ZZ Resection of Lumbar Vertebral Disc, Open Approach (ICD-10-PCS; 2017-03-27)
PROC: 0ST40ZZ Resection of Lumbosacral Disc, Open Approach (ICD-10-PCS; 2017-03-27)
PROC: 01NB0ZZ Release Lumbar Nerve, Open Approach (ICD-10-PCS; 2017-03-27)
PROC: 0SG00AJ Fusion of Lumbar Vertebral Joint with Interbody Fusion Device, Posterior Approach, Anterior Column, Open Approach (ICD-10-PCS; principal; 2017-03-27 08:32)
DX: M51.16 Intervertebral disc disorders with radiculopathy, lumbar region (principal); J44.9 Chronic obstructive pulmonary disease, unspecified; M51.37 Other intervertebral disc degeneration, lumbosacral region; E78.5 Hyperlipidemia, unspecified; K21.9 Gastro-esophageal reflux disease without esophagitis; F17.210 Nicotine dependence, cigarettes, uncomplicated; G47.00 Insomnia, unspecified; R31.0 Gross hematuria; N99.89 Other postprocedural complications and disorders of genitourinary system; R33.8 Other retention of urine
CPT/HCPCS: 72020; 72100; 76000; 80048; 85025; 86850; 86900; 86901; 94150; 94664; C1713; J0131; J0690; J1100; J1170; J2250; J2270; J2370; J2405; J2710; J3010; J3370; J3480; J7040; J7050; J7120; J7613

== ENCOUNTER 2017-03-31 16:03 | Emergency (ER) | payer MEDICARE, OTHER ==
[~2017-03-31 16:03] MED LIST changes: +WALKER WHEELS/F1 MIS
[2017-03-31 16:26] VITALS: BP 183/92; PULSE 94; RESP 20; TEMP 99.4; O2SAT 94
--- NOTE | 2017-03-31 17:05 | PD ---
HPI Chief Complaint: Complaint Time Seen by Provider: 16:33 Travel History International Travel<30 days: No Contact w/Intl Traveler<30days: No Traveled to known affect area: No History of Present Illness HPI Patient 67-year-old male presents emergency department postop day 4 from the laminectomy and spinal fusion of the lumbar spine for evaluation of urinary retention. While in the hospital the patient did have urinary retention he was evaluated by urology. Per the patient's they were told that he had just shy of the required amount of urine to do a catheterization. According to notes from urology the patient actually refused catheterization. Patient states he's been able to only dribble urine and has not been able to completely void. Endorses some suprapubic discomfort. He states he also had some hematuria postop which I'll apparently started from a urinary catheterization. No fevers no nausea no vomiting no diarrhea, states his back is hurting him a little but denies any saddle anesthesia. PFSH Past Medical History Arthritis: Yes Cancer: No Cardiovascular Problems: Yes (IRREGULAR RHYTHM) High Cholesterol: Yes COPD: Yes Diabetes: No Endocrine: No Genitourinary: No Hepatitis: No Hiatal Hernia: No Immune Disorder: No Musculoskeletal: Yes (OA) Neurologic: Yes (HERNIATED DISK, DDD) Psychiatric: No Reproductive: No Respiratory: Yes (COPD) Thyroid Disease: No Tetanus Vaccination: Unknown Influenza Vaccination: Yes Past Surgical History Abdominal Surgery: Yes (INGUINAL HERNIA REPAIR) AICD: No Cardiac Surgery: No Ear Surgery: No Endocrine Surgery: No Eye Surgery: No Genitourinary Surgery: Yes (HEMORRHOIDECTOMY, ) Joint Replacement: No Oral Surgery: Yes (TONSILLS) Pacemaker: No Thoracic Surgery: Yes (3 cervical disc, lumbar spine ) Other Surgery: Yes (Inguinal hernia) Social History Alcohol Use: Yes ("3 beers a day") Tobacco Use: No ("quit last Friday") Substance Use: No Allergies-Medications (Allergen,Severity, Reaction): Uncoded Allergies: vicryl sutures (Allergy, Severe, 03/05/17) Reported Meds & Prescriptions Reported Meds & Active Scripts Active Flomax (Tamsulosin HCl) 0.4 Mg Cap 0.4 Mg PO HS Walker with Front Wheels (Device) 1 Mis Mis Ea .ROUTE DIRECTED Flexeril (Cyclobenzaprine HCl) 10 Mg Tab 10 Mg PO TID [place] (Hydrocodone-Acetaminophen) 10-325 Mg Tab 1 Tab PO Q4H PRN Reported Zocor (Simvastatin) 40 Mg Tab 40 Mg PO DAILY Gabapentin 100 Mg Cap 100 Mg PO BID Review of Systems Except as stated in HPI: all other systems reviewed are Neg Physical Exam Narrative GENERAL: Well-developed well-nourished, uncomfortable appearing male in no distress. SKIN: Focused skin assessment warm/dry. HEAD: Atraumatic. Normocephalic. EYES: Pupils equal and round. No scleral icterus. No injection or drainage. ENT: No nasal bleeding or discharge. Mucous membranes pink and moist. NECK: Trachea midline. No JVD. CARDIOVASCULAR: Regular rate and rhythm. No murmur appreciated. RESPIRATORY: No accessory muscle use. Clear to auscultation. Breath sounds equal bilaterally. GASTROINTESTINAL: Abdomen soft, moderately distended and minimally tender in the suprapubic region.. Hepatic and splenic margins not palpable. MUSCULOSKELETAL: No obvious deformities. No clubbing. No cyanosis. No edema. NEUROLOGICAL: Awake and alert. No obvious cranial nerve deficits. Motor grossly within normal limits. Normal speech. PSYCHIATRIC: Appropriate mood and affect; insight and judgment normal. Data Data Last Documented VS Vital Signs Date Time Temp Pulse Resp B/P (MAP) Pulse Ox O2 Delivery O2 Flow Rate FiO2 03/31/17 16:26 99.4 94 20 183/92 (122) 94 Orders Orders Ed Poc Ultrasound (03/31/17 ) Urinary Catheter Management JOSE.Q8H (03/31/17 16:55) Urinalysis - C+S If Indicated (03/31/17 16:55) Labs Laboratory Tests Test 03/31/17 17:34 Urine Color YELLOW Urine Turbidity CLEAR Urine pH 6.0 Urine Specific [place] 1.011 Urine Protein NEG mg/dL Urine Glucose (UA) NEG mg/dL Urine Ketones NEG mg/dL Urine Occult Blood MOD Urine Nitrite NEG Urine Bilirubin NEG Urine Leukocyte Esterase NEG Urine RBC 15-19 /hpf Urine WBC 0-2 /hpf Urine Squamous Epithelial Cells 0-5 /hpf Microscopic Urinalysis Comment CULT NOT INDICATED MDM Medical Decision Making Medical Screen Exam Complete: Yes Emergency Medical Condition: Yes Differential Diagnosis Post catheterization urinary retention, cauda equina seems highly unlikely, hematuria, urinary tract infection. Narrative Course Patient roomed in the emergency department, discussed with him my recommendations for catheterization this time to prevent obstructive uropathy and ultimately he is agreeable. He did try attempt to urinate and was able to void some prior to having catheterization and a post void residual greater than 1600 cc. UA was negative for infection did have some minimal blood. Patient feeling much better after catheterization. Cauda equina does seem unlikely given the fact that he was catheterized and Dr. Spaulding who performed his surgery is aware that he did have postoperative urinary retention. I did discuss the patient with Dr. Spaulding and I discussed my low index of suspicion for cauda equina syndrome and we discussed the possibility of MRI which the patient states he did not want secondary to cost. Dr. Spaulding has informed me that he has such a low index of suspicion based on the history and knowing the patient that he should be having a catheterization and follow-up with Dr. Justice. This was conveyed to the patient who is agreeable. Discussed return to ED criteria catheter management, placed in a leg bag Flomax was initiated after discussion of risks benefits competitions and alternatives with the patient stable for discharge. Procedures Procedure Narrative Bedside ultrasound abdomen: Transabdominal views were obtained of the bladder and the entire bladder could not be viewed in 1 time. Estimations are greater than 1200 cc of urine in the bladder. No free fluid. Diagnosis Primary Impression: Urinary retention Referrals: Benitez Lopze MD Med/Other Pt SpecificInfo: Prescription(s) given Scripts Tamsulosin (Flomax) 0.4 Mg Cap 0.4 MG PO HS for Manage Prostate Problems, #30 CAP 0 Refills Prov: Mike Ling MD 03/31/17 Disposition: 01 DISCHARGE HOME Condition: Stable Mike Ling MD Mar 31, 2017 17:05
[2017-03-31 17:37] LABS: BLOOD, URINE MOD (NEG); GLUCOSE,URINE NEG (NEG); KETONE, URINE NEG (NEG); NITRITE,URINE NEG (NEG)
[2017-03-31 17:49] LABS: COMMENT (UR) CULT NOT INDICATED; CULTURE IF INDICATED CULT NOT INDICATED; RBC, URINE 15-19 /hpf (0-3); SQUAMOUS EPITHELIAL CELL URINE 0-5 /hpf (0-5); URINE COLOR YELLOW (YELLW/STRAW); WBC, URINE 0-2 /hpf (0-5)
[2017-03-31] MEDS ORDERED: TAMS5CAP PO (17:57)
[2017-04-01] MEDS ORDERED: LEVO500T8 PO (13:20)
== END 2017-03-31 19:10 | disposition home or self-care (01) ==
LOC: PHED 16:03
DX: R33.9 Retention of urine, unspecified (principal); E78.00 Pure hypercholesterolemia, unspecified; J44.9 Chronic obstructive pulmonary disease, unspecified; Z98.1 Arthrodesis status; Z87.891 Personal history of nicotine dependence
CPT/HCPCS: 51702; 81001

== ENCOUNTER 2017-04-01 09:37 | Emergency (ER) | payer OTHER ==
[~2017-04-01] VITALS: Ht 182.9 cm; Wt 82.3 kg
[~2017-04-01 09:37] MED LIST changes: +TAMS5CAP PO
[2017-04-01 09:44] VITALS: BP 99/56; PULSE 95; RESP 16; TEMP 98.7; O2SAT 96
--- NOTE | 2017-04-01 10:11 | PD ---
HPI Chief Complaint: Altered Mental Status Time Seen by Provider: 09:57 Travel History International Travel<30 days: No Contact w/Intl Traveler<30days: No Traveled to known affect area: No History of Present Illness HPI APPARENTLY OVERNIGHT PATIENT CALLED 911 AND STATED THAT BURGLARS WERE STEALING TV (PER , THERE WAS NO ONE AT HOME BUT THE TWO OF THEM), THEN LATER ON HE STATED "LOOK AT THE SPIDER WEB" AND HE WAS SHOWING HER HIS HANDS WHICH ACCORDING TO HER WERE WNL. PATIENT HAD A RECENT LUMBAR PROCEDURE BY DR TSANG AT END OF FOR SPINAL STENOSIS, HE PRESENTED YESTERDAY FOR URINARY RETENTION FOR WHICH HE RECEIVED A RINALDI AND LEG BAG (HAD UA WHICH DID NOT SHOW ANY E/O UTI). PATIENT DENIES WILLIAM/CP/ABD PAIN/N/V/D AT THIS TIME PFSH Past Medical History Arthritis: Yes Cancer: No Cardiovascular Problems: Yes (IRREGULAR RHYTHM) High Cholesterol: Yes COPD: Yes Diabetes: No Endocrine: No Genitourinary: No Hepatitis: No Hiatal Hernia: No Immune Disorder: No Musculoskeletal: Yes (OA) Neurologic: Yes (HERNIATED DISK, DDD) Psychiatric: No Reproductive: No Respiratory: Yes (copd) Thyroid Disease: No Past Surgical History Abdominal Surgery: Yes (INGUINAL HERNIA REPAIR) AICD: No Cardiac Surgery: No Ear Surgery: No Endocrine Surgery: No Eye Surgery: No Genitourinary Surgery: Yes (HEMORRHOIDECTOMY, ) Joint Replacement: No Oral Surgery: Yes (TONSILLS) Pacemaker: No Thoracic Surgery: Yes (3 cervical disc, lumbar spine ) Other Surgery: Yes (Inguinal hernia) Social History Alcohol Use: Yes ("3 beers a day") Tobacco Use: No ("quit last Friday") Substance Use: No Allergies-Medications (Allergen,Severity, Reaction): Uncoded Allergies: vicryl sutures (Allergy, Severe, 04/01/17) . Reported Meds & Prescriptions Reported Meds & Active Scripts Active Flomax (Tamsulosin HCl) 0.4 Mg Cap 0.4 Mg PO HS Walker with Front Wheels (Device) 1 Mis Mis Ea .ROUTE DIRECTED Flexeril (Cyclobenzaprine HCl) 10 Mg Tab 10 Mg PO TID [place] (Hydrocodone-Acetaminophen) 10-325 Mg Tab 1 Tab PO Q4H PRN Reported Zocor (Simvastatin) 40 Mg Tab 40 Mg PO DAILY Gabapentin 100 Mg Cap 100 Mg PO BID Review of Systems ROS Limitations: Altered Mental Status (INTERMITTENT EPISODES OF VISUAL HALLUCINATIONS) Except as stated in HPI: all other systems reviewed are Neg Physical Exam Narrative GENERAL: SKIN: Warm and dry....SURGICAL INCISION HAS NO ERYTHEMA NOR ANY DRAINAGE...SUPERIOR TO INCISION THERE ARE SOME AREAS OF ABRASION? UNSURE IF RELATED TO TAPE OR DRESSING BUT IS SUPERFICIAL AND ONLY INVOLVED AN AREA ABOUT AN INCH SUPERIOR TO ACTUAL INCISION. HEAD: Atraumatic. Normocephalic. EYES: Pupils equal and round. No scleral icterus. No injection or drainage. ENT: No nasal bleeding or discharge. Mucous membranes pink and moist. NECK: Trachea midline. No JVD. CARDIOVASCULAR: Regular rate and rhythm. RESPIRATORY: No accessory muscle use. Clear to auscultation. Breath sounds equal bilaterally. GASTROINTESTINAL: Abdomen soft, non-tender, nondistended. MUSCULOSKELETAL: Extremities without clubbing, cyanosis, or edema. No obvious deformities. NEUROLOGICAL: Awake and alert. No obvious cranial nerve deficits. Motor grossly within normal limits. Five out of 5 muscle strength in the arms and legs. Normal speech. PSYCHIATRIC: Appropriate mood and affect; insight and judgment normal. Data Data Last Documented VS Vital Signs Date Time Temp Pulse Resp B/P (MAP) Pulse Ox O2 Delivery O2 Flow Rate FiO2 04/01/17 12:31 78 18 130/76 (94) 96 Room Air 04/01/17 09:44 98.7 Orders Orders Electrocardiogram (04/01/17 10:05) Complete Blood Count With Diff (04/01/17 10:05) Comprehensive Metabolic Panel (04/01/17 10:05) Prothrombin Time / Inr (Pt) (04/01/17 10:05) Act Partial Throm Time (Ptt) (04/01/17 10:05) Troponin I (04/01/17 10:05) Thyroid Stimulating Hormone (04/01/17 10:05) Lactic Acid Sepsis Protocol (04/01/17 10:05) Blood Culture (04/01/17 10:05) Chest, Single Ap (04/01/17 10:05) Ct Brain W/O Iv Contrast(Rout) (04/01/17 10:05) Blood Glucose (04/01/17 10:05) Ecg Monitoring (04/01/17 10:05) Iv Access Insert/Monitor (04/01/17 10:05) Oximetry (04/01/17 10:05) Sodium Chloride 0.9% Flush (Ns Flush) (04/01/17 10:15) Drug Screen, Random Urine (04/01/17 10:05) Alcohol (Ethanol) (04/01/17 10:05) Tylenol (Acetaminophen) (04/01/17 10:05) Salicylates (Aspirin) (04/01/17 10:05) Ct Lumb Spine W Iv Contrast (04/01/17 ) Iohexol 350 Inj (Omnipaque 350 Inj) (04/01/17 11:56) Labs Laboratory Tests Test 04/01/17 10:20 04/01/17 10:25 04/01/17 10:50 White Blood Count 8.9 TH/MM3 Red Blood Count 3.60 MIL/MM3 Hemoglobin 10.8 GM/DL Hematocrit 33.4 % Mean Corpuscular Volume 92.6 FL Mean Corpuscular Hemoglobin 30.0 PG Mean Corpuscular Hemoglobin Concent 32.3 % Red Cell Distribution Width 13.1 % Platelet Count 247 TH/MM3 Mean Platelet Volume 6.7 FL Neutrophils (%) (Auto) 64.3 % Lymphocytes (%) (Auto) 18.1 % Monocytes (%) (Auto) 13.8 % Eosinophils (%) (Auto) 2.9 % Basophils (%) (Auto) 0.9 % Neutrophils # (Auto) 5.7 TH/MM3 Lymphocytes # (Auto) 1.6 TH/MM3 Monocytes # (Auto) 1.2 TH/MM3 Eosinophils # (Auto) 0.3 TH/MM3 Basophils # (Auto) 0.1 TH/MM3 CBC Comment DIFF FINAL Differential Comment Prothrombin Time 10.6 SEC Prothromb Time International Ratio 1.0 RATIO Activated Partial Thromboplast Time 28.6 SEC Blood Urea Nitrogen 12 MG/DL Creatinine 0.68 MG/DL Random Glucose 95 MG/DL Total Protein 6.7 GM/DL Albumin 2.9 GM/DL Calcium Level 9.1 MG/DL Alkaline Phosphatase 100 U/L Aspartate Amino Transf (AST/SGOT) 67 U/L Alanine Aminotransferase (ALT/SGPT) 76 U/L Total Bilirubin 0.8 MG/DL Sodium Level 136 MEQ/L Potassium Level 3.4 MEQ/L Chloride Level 99 MEQ/L Carbon Dioxide Level 31.4 MEQ/L Anion Gap 6 MEQ/L Estimat Glomerular Filtration Rate 116 ML/MIN Troponin I LESS THAN 0.02 NG/ML Thyroid Stimulating Hormone 3rd Gen 1.070 uIU/ML Salicylates Level LESS THAN 1.7 MG/DL Acetaminophen Level LESS THAN 2.0 MCG/ML Ethyl Alcohol Level LESS THAN 3 MG/DL Lactic Acid Level 0.9 mmol/L Urine Opiates Screen POS Urine Barbiturates Screen NEG Urine Amphetamines Screen NEG Urine Benzodiazepines Screen NEG Urine Cocaine Screen NEG Urine Cannabinoids Screen NEG MDM Medical Decision Making Medical Screen Exam Complete: Yes Emergency Medical Condition: Yes Medical Record Reviewed: Yes Differential Diagnosis CONFUSION:::EPIDURAL ABSCESS V UTI V PNA V ICH Narrative Course AFTER THOROUGH EVALUATION NO E/O EPIDURAL ABSCESS, NO E/O ICH, NO UTI, CXR LIKELY BRONCHITIS AT WORSE, SO MOST LIKELY CAUSE OF SYMPTOMS IS MEDICATION RELATED (PARTICULARLY OPIATES) WILL D/C ON PO ABX FOR SAFE SIDE Diagnosis Primary Impression: Bronchitis Scripts Levofloxacin (Levofloxacin) 500 Mg Tablet 500 MG PO DAILY for Infection, #5 TAB 0 Refills Prov: Faizan Tabor MD 04/01/17 Disposition: DISCHARGE HOME Condition: Stable Faizan Tabor MD Apr 01, 2017 10:11
[2017-04-01] MEDS ORDERED: SODIUM CHLORIDE 0.9% FLUSH 5 ML FLUSH IV FLUSH PRN (10:15)
[2017-04-01 10:30] VITALS: RESP 18; O2SAT 97
[2017-04-01 10:36] LABS: AUTOMATED NEUTROPHIL # 5.7 TH/MM3 (1.8-7.7); BASOPHIL # 0.1 TH/MM3 (0-0.2); BASOPHIL % 0.9 % (0.0-2.0); EOSINOPHIL # 0.3 TH/MM3 (0-0.4); EOSINOPHIL % 2.9 % (0.0-4.0); HEMATOCRIT 33.4 % (39.0-51.0); HEMO FLAGS DIFF FINAL; LYMPH % 18.1 % (9.0-44.0); LYMPHOCYTE # 1.6 TH/MM3 (1.0-4.8); MEAN CELL VOLUME 92.6 FL (80.0-100.0); MEAN CORPUSCULAR HGB CONC 32.3 % (32.0-36.0); MONO % 13.8 % (0.0-8.0); NEUT % 64.3 % (16.0-70.0); PLATELET COUNT 247 TH/MM3 (150-450); RED CELL DISTRIBUTION WIDTH 13.1 % (11.6-17.2); WHITE BLOOD COUNT 8.9 TH/MM3 (4.0-11.0)
--- NOTE | 2017-04-01 10:39 | RADRPT ---
EXAM DATE/TIME: 04/01/2017 10:30 [facility] COMPARISON: No previous studies available for comparison. INDICATIONS : Confusion, possible UTI. MEDICAL HISTORY : Hypercholesterolemia. Chronic obstructive pulmonary disease. Osteoarthritis. Irregular heart beat . SURGICAL HISTORY : Tonsillectomy. Inguinal hernia repair. Hemorrhoidectomy. Cervical spine. Lumbar spine. Left knee. ENCOUNTER: Initial ACUITY: 2 days PAIN SCORE: 0/10 LOCATION: chest FINDINGS: Mild diffusely increased interstitial prominence. Minimal bibasilar linear parenchymal opacities. Car diomedi stone contours are within normal limits. Bony thorax is intact. CONCLUSION: 1. Mild diffuse interstitial prominence, likely chronic although chronicity cannot be confirmed due t o lack of prior exams. 2. Minimal bibasilar linear parenchymal opacities, presumably atelectasis. Dayton Vega MD on April 01, 2017 at 10:37 Board Certified Radiologist. This report was verified electronically.
[2017-04-01 10:43] LABS: CHLORIDE 99 MEQ/L (98-107); POTASSIUM 3.4 MEQ/L (3.5-5.1); SODIUM (NA) 136 MEQ/L (136-145)
[2017-04-01 10:47] LABS: ANION GAP 6 MEQ/L (5-15); APTT (PATIENT) 28.6 SEC (24.3-30.1); BICARBONATE 31.4 MEQ/L (21.0-32.0); BLOOD UREA NITROGEN 12 MG/DL (7-18); PROTHROMBIN TIME - PATIENT 10.6 SEC (9.8-11.6)
[2017-04-01 10:50] LABS: ALT (GPT) 76 U/L (12-78); AST (GOT) 67 U/L (15-37); GLOMERULAR FILTRATION RATE 116 ML/MIN (>89)
[2017-04-01 10:52] LABS: TOTAL BILIRUBIN ADULT 0.8 MG/DL (0.2-1.0)
[2017-04-01 10:53] LABS: ALKALINE PHOSPHATASE 100 U/L (45-117)
[2017-04-01 11:15] VITALS: BP 110/64; PULSE 76; RESP 16; O2SAT 95
[2017-04-01 11:21] LABS: ALCOHOL LESS THAN 3 MG/DL (0-5)
--- NOTE | 2017-04-01 11:55 | RADRPT ---
EXAM DATE/TIME: 04/01/2017 11:43 [facility] COMPARISON: No previous studies available for comparison. INDICATIONS : Episodes of confusion. RADIATION DOSE: 58.30 CTDIvol (mGy) MEDICAL HISTORY : Chronic obstructive pulmonary disease. SURGICAL HISTORY : Fusion, cervical. ENCOUNTER: Initial ACUITY: 1 day PAIN SCALE: 0/10 LOCATION: cranial TECHNIQUE: Multiple contiguous axial images were obtained of the head. Using automated exposure control and adj ustment of the mA and/or kV according to patient size, radiation dose was kept as low as reasonably a chievable to obtain optimal diagnostic quality images. DICOM format image data is available electro nically for review and comparison. FINDINGS: CEREBRUM: Mild diffuse cerebral volume loss. The ventricles are normal for degree of atrophy. No evidence of m idline shift, mass lesion, hemorrhage or acute infarction. No extra-axial fluid collections are seen . POSTERIOR FOSSA: The cerebellum and brainstem are intact. The 4th ventricle is midline. The cerebellopontine angle i s unremarkable. EXTRACRANIAL: The visualized portion of the orbits is intact. Very small mucous retention cyst in the left sphenoid sinus. SKULL: The calvaria is intact. No evidence of skull fracture. CONCLUSION: 1. No acute intracranial abnormality. Dayton Vega MD on April 01, 2017 at 11:53 Board Certified Radiologist. This report was verified electronically.
[2017-04-01] MEDS ORDERED: IOHEXOL 350 MG/ML 10 ML VIAL (for RAD DIAG) IVCONTRAST ONE (11:56)
[2017-04-01 12:24] LABS: ACETAMINOPHEN LESS THAN 2.0 MCG/ML (10.0-30.0)
--- NOTE | 2017-04-01 12:25 | RADRPT ---
EXAM DATE/TIME: 04/01/2017 11:47 [facility] COMPARISON: No previous studies available for comparison. INDICATIONS : Recent lumbar surgery. Evaluate for infection. Pain. IV CONTRAST: 95 cc Omnipaque 350 (iohexol) IV RADIATION DOSE: 25.26 CTDIvol (mGy) MEDICAL HISTORY : Chronic obstructive pulmonary disease. SURGICAL HISTORY : Fusion, lumbar. ENCOUNTER: Initial ACUITY: 4 - 6 days PAIN SCALE: 4/10 LOCATION: lumbar TECHNIQUE: Volumetric scanning of the lumbar spine was performed. Multiplanar reconstructions in the sagittal, coronal and oblique axial planes were performed. Using automated exposure control and adjustment of the mA and/or kV according to patient size, radiation dose was kept as low as reasonably achievable t o obtain optimal diagnostic quality images. DICOM format image data is available electronically for review and comparison. FINDINGS: Posterior hardware fusion has been accomplished from L4-S1 with pedicle screws and longitudinal bar o n the left side associated with laminotomies at the 45 and 5 one levels.. The hardware appears intact . The alignment is satisfactory. There appears be wide bony decompression of the canal. There is some heterogeneous mixed density radiodense debris present in the left lateral recess at the L4-5 level w hich may be bone graft material or other sequela of the surgery. The appropriateness of this material in this location is not clearly determined and correlation with surgical details would be suggested. There is no evidence of paraspinal hematoma or other concerning collection otherwise. Elsewhere, the upper lumbar alignment and appearance is satisfactory and nonacute. Canal and foramina are elsewhere widely patent. CONCLUSION: Postoperative appearance at L4-5 and L5-S1 as described. No evidence of paraspinal hematoma or collec tion. See above discussion Trevor Gallagher MD on April 01, 2017 at 12:16 Board Certified Radiologist. This report was verified electronically.
[2017-04-01 12:31] VITALS: BP 130/76; PULSE 78; RESP 18; O2SAT 96
[2017-04-01] MEDS ORDERED: LEVO500T8 PO (13:20)
[2017-04-01 13:34] VITALS: BP 130/74; PULSE 80; RESP 16; O2SAT 96
--- NOTE | 2017-04-01 16:35 | EKG ---
Date Performed: 04/01/2017 Time Performed: 10:12:30 PTAGE: 67 years EKG: Sinus rhythm INCOMPLETE RIGHT BUNDLE BRANCH BLOCK POSSIBLE INFERIOR MYOCARDIAL INFARCTION BORDERLINE ECG NO PREVIOUS TRACING DOCTOR: Melia House Interpretating Date/Time 04/01/2017 16:33:34
== END 2017-04-01 13:50 | disposition home or self-care (01) ==
LOC: PHED 09:37
DX: J40 Bronchitis, not specified as acute or chronic (principal); J44.0 Chronic obstructive pulmonary disease with (acute) lower respiratory infection; E78.00 Pure hypercholesterolemia, unspecified; M19.90 Unspecified osteoarthritis, unspecified site; R94.31 Abnormal electrocardiogram [ECG] [EKG]
CPT/HCPCS: 70450; 71010; 72132; 80053; 80307; 83605; 84443; 84484; 85025; 85610; 85730; 87040; 93005; 99285; Q9967